=== PATIENT | male | born 1955 ===

== ENCOUNTER 2017-02-06 18:47 | Observation (INO) | payer MEDICARE, OTHER ==
[2017-02-06] MEDS ORDERED: Sodium Chloride 0.9% 1,000 ML IV ONE (22:22)
[2017-02-06 22:58] LABS: BASO # 0.1 K/uL (0.0-0.2); BASO % 0.7 % (0.0-2.0); HEMOGLOBIN 14.7 g/dL (12.0-18.0); LYMPH # 0.9 K/uL (1.0-4.3); LYMPH % 5.9 % (20.0-40.0); MEAN CELL VOLUME 84.5 fL (80.0-94.0); MEAN CORPUSCULAR HEMOGLOBIN 29.4 pg (27.0-31.0); MEAN CORPUSCULAR HGB CONC 34.9 g/dL (33.0-37.0); MEAN PLATELET VOLUME 8.3 fL (7.2-11.7); MONO # 0.4 K/uL (0.0-0.8); MONO % 2.9 % (0.0-10.0); NEUT # 13.6 K/uL (1.8-7.0); NEUT % 90.5 % (50.0-75.0); PLATELET COUNT 276 K/uL (130-400); RBC 4.98 Mil/uL (4.40-5.90); RED CELL DISTRIBUTION WIDTH 12.7 % (11.5-14.5); WHITE BLOOD COUNT 15.1 K/uL (4.8-10.8)
[2017-02-06 23:06] LABS: ALBUMIN 3.9 g/dL (3.5-5.0)
[2017-02-06 23:09] LABS: ALB/GLOB RATIO 1.2 (1.0-2.1); AST/SGOT 18 U/L (17-59); BLOOD UREA NITROGEN 23 mg/dL (9-20); GFR AFRICAN-AMERICAN > 60; GFR NON-AFRICAN AMERICAN > 60
[2017-02-06 23:10] LABS: ALT/SGPT 32 U/L (21-72); CALCIUM 9.1 mg/dl (8.6-10.4); LIPASE 445 U/L (23-300)
[2017-02-06 23:48] LABS: SQUAMOUS EPITHIAL 2 /hpf (0-5); URINE BACTERIA RARE (<OCC); URINE BILIRUBIN NEGATIVE (NEGATIVE); URINE BLOOD 1+ (NEGATIVE); URINE CLARITY Hazy (Clear); URINE COLOR Yellow (YELLOW); URINE GLUCOSE (UA) 3+ mg/dL (Normal); URINE NITRATE NEGATIVE (NEGATIVE); URINE PROTEIN 3+ mg/dL (NEGATIVE); URINE UROBILINOGEN NORMAL mg/dL (0.2-1.0)
[2017-02-06 23:49] LABS: URINE LEUKOCYTE ESTERASE 1+ Leu/uL (Negative)
--- NOTE | 2017-02-07 00:04 | C.PDOC ---
History Of Present Illness 61 y/o male, with PMHx of diabetes and hypertension, presents to ED with complaints of nausea, vomiting, and dizziness since this morning. Patient also reports mild diffuse abdominal pain. Denies fever or diarrhea. Patient states he has not taken any medications for symptoms. Denies urinary symptoms, chest pain, or blood in vomitus. Time Seen by Provider: 02/06/17 22:14 Chief Complaint (Nursing): Dizziness/Lightheaded History Per: Patient History/Exam Limitations: no limitations Onset/Duration Of Symptoms: Hrs Current Symptoms Are (Timing): Still Present Seizure Or Post-ictal Symptoms: None Fall Associated With With Symptoms: No Recent travel outside of the [place]: No Past Medical History Reviewed: Historical Data, Nursing Documentation, Vital Signs Vital Signs: Last Vital Signs Temp 97.8 F 02/07/17 00:54 Pulse 73 02/07/17 00:54 Resp 16 02/07/17 00:54 BP 138/72 02/07/17 00:54 Pulse Ox 97 02/07/17 00:54 - Medical History PMH: Anxiety, Diabetes, Graves' Disease, HTN Surgical History: No Surg Hx Family History: States: Unknown Family Hx - Social History Hx Alcohol Use: No Hx Substance Use: No Review Of Systems Except As Marked, All Systems Reviewed And Found Negative. Constitutional: Negative for: Fever, Chills Cardiovascular: Negative for: Chest Pain, Palpitations Respiratory: Negative for: Shortness of Breath Gastrointestinal: Positive for: Vomiting, Abdominal Pain. Negative for: Diarrhea, Hematemesis Genitourinary: Negative for: Dysuria Skin: Negative for: Rash Neurological: Negative for: Dizziness Physical Exam - Physical Exam Appears: Non-toxic, No Acute Distress Skin: Warm, Dry Head: Atraumatic, Normacephalic Chest: Symmetrical Cardiovascular: Rhythm Regular Respiratory: Normal Breath Sounds, No Rales, No Rhonchi, No Wheezing Gastrointestinal/Abdominal: Soft, No Tenderness, No Guarding, No Rebound Back: Normal Inspection Extremity: Normal ROM Neurological/Psych: Oriented x3, Normal Speech, Normal Cognition ED Course And Treatment - Laboratory Results Result Diagrams: 02/06/17 22:56 02/06/17 22:56 ECG: Interpreted By Me ECG Rhythm: Sinus Rhythm ECG Interpretation: Normal Rate From EC (bpm) O2 Sat by Pulse Oximetry: 96 (RA) Pulse Ox Interpretation: Normal Progress Note: Treated with Reglan, Pepcid, and IVFs. Labs and EKG ordered, reviewed. Medical Decision Making Medical Decision Making: Pt continued stable in the ED No further vomiting, abd continues soft with mild tenderness Labs noted mildly low na, lipase and glucose, with elevated wbc's Presently pending CT Disposition - Disposition Disposition Time: 00:45 Condition: FAIR - Clinical Impression Clinical Impression: Abdominal pain, Vomiting - Scribe Statement The provider has reviewed the documentation as recorded by the Laury Willingham Provider Scribe Attestation: All medical record entries made by the Laury were at my direction and personally dictated by me. I have reviewed the chart and agree that the record accurately reflects my personal performance of the history, physical exam, medical decision making, and the department course for this patient. I have also personally directed, reviewed, and agree with the discharge instructions and disposition. Physician Patient Turnover Patient Signed Over To: Gaurang Meyers Handoff Comments: pending CT and responce to meds
[2017-02-07 00:14] LABS: LYMPHOCYTE 8 % (20-40); MONOCYTE 5 % (0-10); NEUTROPHIL 87 % (50-75); PLATELET ESTIMATE NORMAL (NORMAL); TOTAL CELLS COUNTED 100
[2017-02-07] MEDS ORDERED: Iohexol 240 (50 ml) PO ONE (01:03)
[2017-02-07] MEDS ORDERED: Iohexol 240 (50 ml) ONE (01:21)
[2017-02-07] MEDS ORDERED: Iodixanol 320 MG/ML 100 ML BOTTLE IV ONE (02:16)
--- NOTE | 2017-02-07 03:03 | CT ---
EXAM: CT Abdomen and Pelvis With Intravenous Contrast CLINICAL HISTORY: 61 years old, male; Pain and signs and symptoms; Vomiting; Abdominal pain; Generalized; Additional info: Abd pain vomiting TECHNIQUE: Axial computed tomography images of the abdomen and pelvis with intravenous contrast. This CT exam was performed using one or more of the following dose reduction techniques: automated exposure control, adjustment of the mA and/or kV according to patient size, and/or use of iterative reconstruction technique. Coronal and sagittal reformatted images were created and reviewed. CONTRAST: 100 mL of [id number] administered intravenously. COMPARISON: Mild atherosclerotic disease. FINDINGS: Limitations: Motion artifact - mild. Lower thorax: Minimal atelectasis/scarring. RIGHT lower lobe calcified granuloma. 0.3 cm RIGHT lower lobe nodule. ABDOMEN: Liver: Punctate hepatic calcification. Too small to characterize lesion. Gallbladder and bile ducts: No calcified stones. No ductal dilation. Pancreas: No ductal dilation. No mass. Spleen: No splenomegaly. Adrenals: No mass. Kidneys and ureters: 1.6 x 1.5 x 1.3 cm lesion within LEFT kidney, indeterminate by CT criteria. Few too small to characterize lesions within kidneys. No hydronephrosis. Stomach and bowel: No definite mural thickening. No obstruction. Appendix: Enlarged appendix, measuring up to 0.9 cm in diameter. No definite surrounding inflammatory stranding. Possible tiny periappendiceal lymph node. PELVIS: Bladder: Unremarkable. Reproductive: Mildly enlarged prostate. ABDOMEN and PELVIS: Intraperitoneal space: No significant fluid collection. No free air. Bones/joints: Degenerative changes of spine. No acute fracture. Soft tissues: Minimal gynecomastia. Vasculature: Unremarkable. No abdominal aortic aneurysm. Lymph nodes: See above. IMPRESSION: 1. Enlarged appendix without definite inflammation. Early appendicitis not excluded. Clinical correlation and follow up are recommended. 2. Kidney lesion, indeterminate. Recommend nonemergent ultrasound or MRI. 3. Incidental/non-acute findings are described above. THIS REPORT CONTAINS FINDINGS THAT MAY BE CRITICAL TO PATIENT CARE. The findings were verbally communicated via telephone conference with Dr. Meyers at 3:02 AM EDT on 02/07/2017. The findings were acknowledged and understood.
[2017-02-07] MEDS ORDERED: Piperacillin/Tazobact 3.375 gm 100 ML IVPB STA (03:14)
[2017-02-07] MEDS ORDERED: Piperacillin/Tazobact 3.375 gm 100 ML IVPB ONE (03:37)
[2017-02-07] MEDS ORDERED: Cefepime 1 GM in Sodium Chloride 0.9% 50 ML IVPB SCH (09:15)
[2017-02-07] MEDS ORDERED: Piperacill/Tazo 3.375gm in Dex 50 ML IVPB SCH (09:45)
[2017-02-07] MEDS ORDERED: Enoxaparin 40 mg Syringe SC SCH (10:00)
--- NOTE | 2017-02-07 10:13 | CP.PCM.CON ---
History of Present Illness - History of Present Illness History of Present Illness: General surgery consult for Dr. Alfaro: Patient is a 61 year old male with past medical history of diabetes, hypertension, and elevated cholesterol who presents to the ED with complaint of vomiting. Patient states the vomiting began yesterday and that he vomited 7-8 times. Patient reports non-bloody emesis. Patient states last episode of vomiting was upon his arrival in the ED yesterday evening. Patient denies episodes similar to this in the past. Patient denies recent illness. Patient denies eating or drinking since yesterday evening. Patient denies fever, chills , nausea. Patient denies abdominal pain. Patient admits to mild sensation of dizziness upon ambulation. Patient reports normal BM this morning. Patient was given zofran and reglan in ER with relief of symptoms. Patient had elevated lipase of 445 on initial labs. Patient is being admitted for possible pancreatitis, enlarged appendix, nausea and vomiting. Surgery consulted for enlarged appendix seen on CT scan. PMD: Dr. Juliocesar Pereira PMHx: DM, HTN, HLD PSHx: bilateral cataract removal Family Hx: Mother/ Father with DM, HTN; sister with uterine cancer Social Hx: former smoker/ alcohol abuse- quit 20 years ago Review of Systems - Constitutional Constitutional: absent: Chills, Fever, Weakness - EENT Eyes: absent: Change in Vision - Cardiovascular Cardiovascular: absent: Chest Pain, Dyspnea - Respiratory Respiratory: absent: Dyspnea - Gastrointestinal Gastrointestinal: Nausea, Vomiting. absent: Abdominal Pain, Diarrhea, Hematemesis - Genitourinary Genitourinary: absent: Difficulty Urinating - Musculoskeletal Musculoskeletal: absent: Back Pain - Neurological Neurological: Dizziness Past Patient History - Past Social History Smoking Status: Never Smoked - CARDIAC Hx Hypertension: Yes - PSYCHIATRIC Hx Anxiety: Yes Hx Substance Use: No - SURGICAL HISTORY Hx Cataract Extraction: Yes (both) - ANESTHESIA Hx Anesthesia: Yes Hx Anesthesia Reactions: Yes Meds Allergies/Adverse Reactions: Allergies Allergy/AdvReac Type Severity Reaction Status Date / Time No Known Allergies Allergy Unverified 02/06/17 19:41 - Medications Medications: Current Medications Amlodipine Besylate (Norvasc) 5 mg PO DAILY [facility] Glipizide (Glucotrol) 5 mg PO DAILY [facility] Home Med (Valsartan-Hctz 160-12.5 Mg Tab) 160 mg PO DAILY [facility] Cefepime HCl 1 gm/ Sodium (Chloride) 50 mls @ 100 mls/hr IVPB Q12H [facility] Piperacillin Sod/Tazobactam Sod (Zosyn 3.375 Gm Iv Premix) 50 mls @ 100 mls/hr IVPB Q8 [facility] Insulin Human Regular (Novolin R) 0 unit SC ACHS [facility] PRN Reason: Protocol Metformin HCl (Glucophage) 1,000 mg PO DAILY [facility] Pantoprazole Sodium (Protonix Ec Tab) 40 mg PO DAILY [facility] Sitagliptin Phosphate (Januvia) 100 mg PO DAILY [facility] Physical Exam - Constitutional Appears: Non-toxic, No Acute Distress - Head Exam Head Exam: ATRAUMATIC, NORMOCEPHALIC - Eye Exam Eye Exam: EOMI - ENT Exam ENT Exam: Mucous Membranes Dry - Respiratory Exam Respiratory Exam: Clear to Auscultation Bilateral, NORMAL BREATHING PATTERN - Cardiovascular Exam Cardiovascular Exam: +S1, +S2 - GI/Abdominal Exam GI & Abdominal Exam: Normal Bowel Sounds, Soft. absent: Distended, Firm, Guarding, Rebound, Rigid, Tenderness - Extremities Exam Extremities exam: Negative for: calf tenderness, pedal edema - Neurological Exam Neurological exam: Alert, Oriented x3 - Psychiatric Exam Psychiatric exam: Normal Affect - Skin Skin Exam: Dry, Warm Results - Vital Signs Recent Vital Signs: Last Vital Signs Temp 97.5 F L 02/07/17 08:44 Pulse 67 02/07/17 08:44 Resp 18 02/07/17 08:44 BP 142/74 02/07/17 08:44 Pulse Ox 96 02/07/17 08:44 - Labs Result Diagrams: 02/06/17 22:56 02/06/17 22:56 Assessment & Plan - Assessment and Plan (Free Text) Assessment: 61 year old male with PMHx of diabetes, HTN, elevated cholesterol with multiple episodes of non-bloody emesis, possible early appendicitis on CT - leukocytosis of 15.1 on admission, will follow up labs today - continue IV antibiotics per primary team - CT abd/ pelvis with PO/ IV contrast: no calcified stones or ductal dilation in gallbladder. enlarged appendix measuring up to 0.9cm in diameter. no definite surrounding inflammatory stranding. possible tiny periappendiceal lymph node. no significant fluid collection. no free air. early appendicitis not excluded. (see full report) - lipase 445 - abdomen non-tender, non-distended - IV fluids - will keep patient NPO for now, will continue to monitor - plan discussed with Dr. Alfaro
[2017-02-07] MEDS: Pantoprazole 40 mg EC Tab PO SCH (12:01)
[2017-02-07] MEDS: Cefepime 1 GM in Sodium Chloride 0.9% 100 ML IVPB SCH (13:14)
[2017-02-07] MEDS: (Novolin R) Insulin Human Regular 100 units/ml vial SC SCH ×3 (13:15→22:07)
[2017-02-07] MEDS ORDERED: Dextrose 5%/0.9% NS 1,000 ML IV ONE (13:23)
[2017-02-07] MEDS: Dextrose 5%/0.9% NS 1,000 ML IV SCH ×3 (13:26→23:35)
--- NOTE | 2017-02-07 13:53 | CP.PCM.HP ---
History of Present Illness - History of Present Illness History of Present Illness: 61 years old male patient with past medical history of hypertension and diabetes presented to the emergency room with complaint of dizziness since today morning, also nausea, vomiting, diffuse abdominal pain. No complaint of fever, chest pain, diarrhea. No any urinary symptoms, no hemoptysis Present on Admission - Present on Admission Any Indicators Present on Admission: No Past Patient History - Past Social History Smoking Status: Never Smoked - CARDIAC Hx Hypertension: Yes - PSYCHIATRIC Hx Anxiety: Yes Hx Substance Use: No - SURGICAL HISTORY Hx Cataract Extraction: Yes (both) - ANESTHESIA Hx Anesthesia: Yes Hx Anesthesia Reactions: Yes Meds Allergies/Adverse Reactions: Allergies Allergy/AdvReac Type Severity Reaction Status Date / Time No Known Allergies Allergy Unverified 02/06/17 19:41 Physical Exam - Constitutional Appears: Well - Head Exam Head Exam: ATRAUMATIC, NORMAL INSPECTION, NORMOCEPHALIC - Eye Exam Eye Exam: EOMI, Normal appearance, PERRL Pupil Exam: NORMAL ACCOMODATION, PERRL - ENT Exam ENT Exam: Mucous Membranes Moist, Normal Exam - Neck Exam Neck exam: Positive for: Normal Inspection - Respiratory Exam Respiratory Exam: Decreased Breath Sounds - Cardiovascular Exam Cardiovascular Exam: REGULAR RHYTHM, +S1, +S2 - GI/Abdominal Exam GI & Abdominal Exam: Soft - Rectal Exam Rectal Exam: Deferred Results - Vital Signs Recent Vital Signs: Last Vital Signs Temp 98 F 02/07/17 13:13 Pulse 68 02/07/17 13:13 Resp 20 02/07/17 13:13 BP 143/77 02/07/17 13:13 Pulse Ox 98 02/07/17 13:13 - Labs Result Diagrams: 02/09/17 08:04 02/09/17 08:04 Labs: Laboratory Results - last 24 hr 02/07/17 13:10 POC Glucose (mg/dL) 207 H Assessment & Plan (1) Abdominal pain Status: Acute (2) Pancreatitis Status: Acute (3) Vomiting Status: Acute - Assessment and Plan (Free Text) Plan: Labs reviewed Continue IV antibiotics IV fluids N.p.o. Dr. Alfaro Accu-Chek Protonix
[2017-02-07 16:47] LABS: BASO # 0.1 K/uL (0.0-0.2); BASO % 0.5 % (0.0-2.0); EOS # 0.1 K/uL (0.0-0.7); LYMPH # 2.1 K/uL (1.0-4.3); LYMPH % 17.5 % (20.0-40.0); MEAN CELL VOLUME 85.1 fL (80.0-94.0); MEAN CORPUSCULAR HEMOGLOBIN 29.3 pg (27.0-31.0); MEAN CORPUSCULAR HGB CONC 34.4 g/dL (33.0-37.0); MEAN PLATELET VOLUME 8.4 fL (7.2-11.7); MONO # 1.1 K/uL (0.0-0.8); MONO % 9.3 % (0.0-10.0); NEUT # 8.6 K/uL (1.8-7.0); NEUT % 71.7 % (50.0-75.0); RBC 4.76 Mil/uL (4.40-5.90); RED CELL DISTRIBUTION WIDTH 13.3 % (11.5-14.5)
[2017-02-07 16:56] LABS: ALBUMIN 3.5 g/dL (3.5-5.0)
[2017-02-07 16:59] LABS: AST/SGOT 20 U/L (17-59); GFR AFRICAN-AMERICAN > 60; GFR NON-AFRICAN AMERICAN > 60
[2017-02-07 17:00] LABS: ALB/GLOB RATIO 1.2 (1.0-2.1); ALT/SGPT 21 U/L (21-72); BLOOD UREA NITROGEN 19 mg/dL (9-20); CALCIUM 8.4 mg/dl (8.6-10.4)
[2017-02-07 22:04] LABS: SQUAMOUS EPITHIAL 2 /hpf (0-5); URINE BACTERIA RARE (<OCC); URINE BILIRUBIN NEGATIVE (NEGATIVE); URINE BLOOD NEGATIVE (NEGATIVE); URINE CLARITY Clear (Clear); URINE COLOR Yellow (YELLOW); URINE GLUCOSE (UA) 3+ mg/dL (Normal); URINE LEUKOCYTE ESTERASE NEG Leu/uL (Negative); URINE NITRATE NEGATIVE (NEGATIVE); URINE PROTEIN 2+ mg/dL (NEGATIVE); URINE UROBILINOGEN NORMAL mg/dL (0.2-1.0)
[2017-02-08] MEDS: Cefepime 1 GM in Sodium Chloride 0.9% 100 ML IVPB SCH ×2 (01:00→13:00)
[2017-02-08 01:24] VITALS: RESP 20
[2017-02-08] MEDS: Dextrose 5%/0.9% NS 1,000 ML IV SCH (04:00)
[2017-02-08] MEDS: (Novolin R) Insulin Human Regular 100 units/ml vial SC SCH ×4 (08:18→22:13)
--- NOTE | 2017-02-08 08:54 | CP.PCM.PN ---
Subjective - Date & Time of Evaluation Date of Evaluation: 02/08/17 Time of Evaluation: 08:48 - Subjective Subjective: PGY1 Progress Note fore Dr. Alfaro: Patient seen and examined. Patient denies abdominal pain, nausea, vomiting. Patient states he is hungry and would like to try to eat today. Objective - Vital Signs/Intake and Output Vital Signs (last 24 hours): Temp Pulse Resp BP Pulse Ox 98.3 F 69 20 155/80 H 96 02/08/17 07:49 02/08/17 07:49 02/08/17 07:49 02/08/17 07:49 02/08/17 07:49 Intake and Output: 02/08/17 02/08/17 06:59 18:59 Intake Total 2350 Balance 2350 - Medications Medications: Current Medications Amlodipine Besylate (Norvasc) 5 mg PO DAILY [facility] Last Admin: 02/07/17 12:01 Dose: 5 mg Glipizide (Glucotrol) 5 mg PO DAILY [facility] Last Admin: 02/07/17 12:01 Dose: 5 mg Hydrochlorothiazide (Microzide) 12.5 mg PO DAILY [facility] Dextrose/Sodium Chloride (Dextrose 5%/0.9% Ns 1000 Ml) 1,000 mls @ 150 mls/hr IV .Q6H40M [facility] Last Admin: 02/08/17 04:00 Dose: 150 mls/hr Cefepime HCl 1 gm/ Sodium (Chloride) 100 mls @ 200 mls/hr IVPB Q12H [facility] Last Admin: 02/08/17 01:00 Dose: 200 mls/hr Insulin Human Regular (Novolin R) 0 unit SC ACHS [facility] PRN Reason: Protocol Last Admin: 02/08/17 08:18 Dose: 2 unit Losartan Potassium (Cozaar) 100 mg PO DAILY [facility] Metformin HCl (Glucophage) 1,000 mg PO DAILY [facility] Last Admin: 02/07/17 12:00 Dose: 1,000 mg Pantoprazole Sodium (Protonix Ec Tab) 40 mg PO DAILY [facility] Last Admin: 02/07/17 12:01 Dose: 40 mg Pneumococcal Polyvalent Vaccine (Pneumovax 23 Vaccine) 0.5 ml IM .ONCE ONE Stop: 02/10/17 10:01 Sitagliptin Phosphate (Januvia) 100 mg PO DAILY [facility] Last Admin: 02/07/17 12:01 Dose: 100 mg - Labs Labs: 02/07/17 16:40 02/07/17 16:40 - Constitutional Appears: Non-toxic, No Acute Distress - Head Exam Head Exam: ATRAUMATIC, NORMOCEPHALIC - Eye Exam Eye Exam: EOMI - ENT Exam ENT Exam: Mucous Membranes Moist - GI/Abdominal Exam GI & Abdominal Exam: Soft, Normal Bowel Sounds. absent: Distended, Firm, Guarding, Tenderness - Neurological Exam Neurological Exam: Alert, Awake - Psychiatric Exam Psychiatric exam: Normal Affect - Skin Skin Exam: Warm Assessment and Plan - Assessment and Plan (Free Text) Assessment: 61 year old male with PMHx of diabetes, HTN, elevated cholesterol admitted for multiple episodes of non-bloody emesis and enlarged appendix seen on CT - leukocytosis on admission, AM labs today pending - continue IV antibiotics per primary team - CT abd/ pelvis with PO/ IV contrast: no calcified stones or ductal dilation in gallbladder. enlarged appendix measuring up to 0.9cm in diameter. no definite surrounding inflammatory stranding. possible tiny periappendiceal lymph node. no significant fluid collection. no free air. early appendicitis not excluded. (see full report) - abdomen non-tender, non-distended - continue IV fluids - will advance diet today - further recs per Dr. Alfaro
[2017-02-08] MEDS: Pantoprazole 40 mg EC Tab PO SCH (09:53)
[2017-02-08] MEDS: Sodium Chloride 0.9% 1,000 ML IV SCH ×2 (10:33→22:12)
[2017-02-08 12:05] LABS: BASO % 0.2 % (0.0-2.0); EOS % 0.5 % (0.0-4.0); HEMOGLOBIN 13.4 g/dL (12.0-18.0); LYMPH # 1.2 K/uL (1.0-4.3); LYMPH % 15.4 % (20.0-40.0); MEAN CORPUSCULAR HGB CONC 33.7 g/dL (33.0-37.0); MEAN PLATELET VOLUME 8.3 fL (7.2-11.7); MONO # 0.7 K/uL (0.0-0.8); MONO % 9.1 % (0.0-10.0); NEUT # 6.1 K/uL (1.8-7.0); NEUT % 74.8 % (50.0-75.0); RBC 4.63 Mil/uL (4.40-5.90); RED CELL DISTRIBUTION WIDTH 12.9 % (11.5-14.5); WHITE BLOOD COUNT 8.1 K/uL (4.8-10.8)
[2017-02-08 12:19] LABS: AST/SGOT 21 U/L (17-59); GFR AFRICAN-AMERICAN > 60; GFR NON-AFRICAN AMERICAN > 60
[2017-02-08 12:20] LABS: ALT/SGPT 28 U/L (21-72); BLOOD UREA NITROGEN 14 mg/dL (9-20); CALCIUM 8.4 mg/dl (8.6-10.4)
--- NOTE | 2017-02-08 15:47 | CP.PCM.PN ---
Subjective - Date & Time of Evaluation Date of Evaluation: 02/08/17 Time of Evaluation: 10:40 - Subjective Subjective: clinically same Objective - Vital Signs/Intake and Output Vital Signs (last 24 hours): Temp Pulse Resp BP Pulse Ox 98.3 F 69 20 155/80 H 96 02/08/17 07:49 02/08/17 07:49 02/08/17 07:49 02/08/17 07:49 02/08/17 07:49 Intake and Output: 02/08/17 02/08/17 06:59 18:59 Intake Total 2350 1480 Balance 2350 1480 - Medications Medications: Current Medications Amlodipine Besylate (Norvasc) 5 mg PO DAILY [facility] Last Admin: 02/08/17 09:53 Dose: 5 mg Glipizide (Glucotrol) 5 mg PO DAILY [facility] Last Admin: 02/07/17 12:01 Dose: 5 mg Hydrochlorothiazide (Microzide) 12.5 mg PO DAILY [facility] Last Admin: 02/08/17 09:53 Dose: 12.5 mg Cefepime HCl 1 gm/ Sodium (Chloride) 100 mls @ 200 mls/hr IVPB Q12H [facility] Last Admin: 02/08/17 13:00 Dose: 200 mls/hr Sodium Chloride (Sodium Chloride 0.9%) 1,000 mls @ 100 mls/hr IV .Q10H [facility] Last Admin: 02/08/17 10:33 Dose: 100 mls/hr Insulin Human Regular (Novolin R) 0 unit SC ACHS [facility] PRN Reason: Protocol Last Admin: 02/08/17 13:01 Dose: 2 unit Losartan Potassium (Cozaar) 100 mg PO DAILY [facility] Last Admin: 02/08/17 09:53 Dose: 100 mg Metformin HCl (Glucophage) 1,000 mg PO DAILY [facility] Last Admin: 02/07/17 12:00 Dose: 1,000 mg Pantoprazole Sodium (Protonix Ec Tab) 40 mg PO DAILY [facility] Last Admin: 02/08/17 09:53 Dose: 40 mg Pneumococcal Polyvalent Vaccine (Pneumovax 23 Vaccine) 0.5 ml IM .ONCE ONE Stop: 02/10/17 10:01 Sitagliptin Phosphate (Januvia) 100 mg PO DAILY [facility] Last Admin: 02/07/17 12:01 Dose: 100 mg - Labs Labs: 02/08/17 11:54 02/08/17 11:54 - Constitutional Appears: Well - Head Exam Head Exam: ATRAUMATIC, NORMAL INSPECTION, NORMOCEPHALIC - Eye Exam Eye Exam: EOMI, Normal appearance, PERRL Pupil Exam: NORMAL ACCOMODATION, PERRL - ENT Exam ENT Exam: Mucous Membranes Moist, Normal Exam - Neck Exam Neck Exam: Full ROM, Normal Inspection. absent: Lymphadenopathy - Respiratory Exam Respiratory Exam: Decreased Breath Sounds - Cardiovascular Exam Cardiovascular Exam: REGULAR RHYTHM, +S1, +S2 - GI/Abdominal Exam GI & Abdominal Exam: Soft, Diminished Bowel Sounds - Rectal Exam Rectal Exam: Deferred Assessment and Plan (1) Abdominal pain Status: Acute (2) Pancreatitis Status: Acute (3) Vomiting Status: Acute - Assessment and Plan (Free Text) Plan: Consult GI Consult general surgery Blood report positive for lipase with 445 and leukocytosis IV antibiotic Protonix IV fluids CT positive for appendicitis
[2017-02-08 16:59] VITALS: O2SAT 97
[2017-02-09] MEDS: Cefepime 1 GM in Sodium Chloride 0.9% 100 ML IVPB SCH ×2 (01:30→12:06)
--- NOTE | 2017-02-09 07:46 | CP.PCM.PN ---
Subjective - Date & Time of Evaluation Date of Evaluation: 02/09/17 Time of Evaluation: 07:41 - Subjective Subjective: PGY1 Progress note for Dr. Alfaro: Patient seen and examined. Patient denies abdominal pain, nausea, vomiting, fevers, chills. Patient states he is eating well and feels well. Objective - Vital Signs/Intake and Output Vital Signs (last 24 hours): Temp Pulse Resp BP Pulse Ox 98.5 F 75 20 152/73 H 97 02/09/17 06:00 02/09/17 00:00 02/09/17 00:00 02/09/17 00:00 02/09/17 00:00 Intake and Output: 02/09/17 02/09/17 06:59 18:59 Intake Total 2250 Balance 2250 - Medications Medications: Current Medications Amlodipine Besylate (Norvasc) 5 mg PO DAILY [facility] Last Admin: 02/08/17 09:53 Dose: 5 mg Glipizide (Glucotrol) 5 mg PO DAILY [facility] Last Admin: 02/07/17 12:01 Dose: 5 mg Hydrochlorothiazide (Microzide) 12.5 mg PO DAILY [facility] Last Admin: 02/08/17 09:53 Dose: 12.5 mg Cefepime HCl 1 gm/ Sodium (Chloride) 100 mls @ 200 mls/hr IVPB Q12H [facility] Last Admin: 02/09/17 01:30 Dose: 200 mls/hr Sodium Chloride (Sodium Chloride 0.9%) 1,000 mls @ 100 mls/hr IV .Q10H [facility] Last Admin: 02/08/17 22:12 Dose: 100 mls/hr Insulin Human Regular (Novolin R) 0 unit SC ACHS [facility] PRN Reason: Protocol Last Admin: 02/08/17 22:13 Dose: Not Given Losartan Potassium (Cozaar) 100 mg PO DAILY [facility] Last Admin: 02/08/17 09:53 Dose: 100 mg Metformin HCl (Glucophage) 1,000 mg PO DAILY [facility] Last Admin: 02/07/17 12:00 Dose: 1,000 mg Pantoprazole Sodium (Protonix Ec Tab) 40 mg PO DAILY [facility] Last Admin: 02/08/17 09:53 Dose: 40 mg Pneumococcal Polyvalent Vaccine (Pneumovax 23 Vaccine) 0.5 ml IM .ONCE ONE Stop: 02/10/17 10:01 Sitagliptin Phosphate (Januvia) 100 mg PO DAILY [facility] Last Admin: 02/07/17 12:01 Dose: 100 mg - Labs Labs: 02/08/17 11:54 02/08/17 11:54 - Constitutional Appears: Non-toxic, No Acute Distress - Head Exam Head Exam: ATRAUMATIC, NORMOCEPHALIC - Eye Exam Eye Exam: EOMI - ENT Exam ENT Exam: Mucous Membranes Moist - GI/Abdominal Exam GI & Abdominal Exam: Soft. absent: Distended, Tenderness - Neurological Exam Neurological Exam: Alert, Awake - Psychiatric Exam Psychiatric exam: Normal Affect - Skin Skin Exam: Warm Assessment and Plan - Assessment and Plan (Free Text) Assessment: 61 year old male with PMHx of diabetes, HTN, elevated cholesterol admitted for multiple episodes of non-bloody emesis and enlarged appendix seen on CT - CT abd/ pelvis with PO/ IV contrast: no calcified stones or ductal dilation in gallbladder. enlarged appendix measuring up to 0.9cm in diameter. no definite surrounding inflammatory stranding. possible tiny periappendiceal lymph node. no significant fluid collection. no free air. early appendicitis not excluded. (see full report) - leukocytosis downtrending, AM labs today pending - abdomen non-tender, non-distended - patient tolerating full diet - patient can be discharged from surgical standpoint with cipro and flagyl for 7 days - further recs per Dr. Alfaro
[2017-02-09] MEDS: (Novolin R) Insulin Human Regular 100 units/ml vial SC SCH ×3 (08:19→16:30)
[2017-02-09 08:22] LABS: BASO % 0.4 % (0.0-2.0); EOS # 0.2 K/uL (0.0-0.7); EOS % 1.8 % (0.0-4.0); HEMOGLOBIN 13.1 g/dL (12.0-18.0); LYMPH # 1.3 K/uL (1.0-4.3); LYMPH % 14.5 % (20.0-40.0); MEAN CELL VOLUME 85.7 fL (80.0-94.0); MEAN CORPUSCULAR HEMOGLOBIN 29.1 pg (27.0-31.0); MEAN PLATELET VOLUME 8.5 fL (7.2-11.7); MONO # 0.8 K/uL (0.0-0.8); NEUT # 6.7 K/uL (1.8-7.0); NEUT % 74.3 % (50.0-75.0); NRBC % 0.2 % (0.0-2.0); RBC 4.51 Mil/uL (4.40-5.90); RED CELL DISTRIBUTION WIDTH 13.1 % (11.5-14.5)
[2017-02-09 09:04] LABS: ALBUMIN 3.2 g/dL (3.5-5.0)
[2017-02-09 09:06] LABS: AMYLASE 146 U/L (30-110); GFR AFRICAN-AMERICAN > 60; GFR NON-AFRICAN AMERICAN > 60
[2017-02-09 09:07] LABS: ALB/GLOB RATIO 1.2 (1.0-2.1); ALT/SGPT 33 U/L (21-72); AST/SGOT 35 U/L (17-59); BLOOD UREA NITROGEN 14 mg/dL (9-20); CALCIUM 8.3 mg/dl (8.6-10.4); LIPASE 457 U/L (23-300)
[2017-02-09] MEDS: Pantoprazole 40 mg EC Tab PO SCH (11:47)
[2017-02-09] MEDS ORDERED: Sodium Chloride 0.9% 1,000 ML IV SCH (13:15)
[2017-02-09 16:24] VITALS: BP 154/64; PULSE 67; TEMP 97.9
[2017-02-09] MEDS ORDERED: Pneumococcal 23-Valent Vaccine IM ONE (16:45)
--- NOTE | 2017-02-09 16:45 | CP.PCM.PN ---
Subjective - Date & Time of Evaluation Date of Evaluation: 02/09/17 Time of Evaluation: 11:00 - Subjective Subjective: 61 Y/O MALE SEEN AND EXAMINED TODAY BY DR Adiel IVAN, PMHX DM, HTN, ENLARGED APPENDIX 90.9 CM), NO FLUID COLLECTION, NO FREE AIR, ABD SOFT AND NON-TENDER, TOLERATING REGULAR DIET TODAY, DENIES ANY ABD PAIN, N/V/D, PT CLEARED FOR D/C BY DR IVAN AND SURGERY, RX FOR CIPRO AND FLAGYL GIVEN BY SURGERY, PT EDUCATED TO F/U W/ DR IVAN IN THE OFFICE ON TUESDAY FOR REPEAT AMYLASE. LIPASE, RETURN TO ED IF ANY WORSENING S/S,A GREE, VERBALIZE UNDERSTANDING Objective - Vital Signs/Intake and Output Vital Signs (last 24 hours): Temp Pulse Resp BP Pulse Ox 97.9 F 67 20 154/64 H 97 02/09/17 15:35 02/09/17 15:35 02/09/17 15:35 02/09/17 15:35 02/09/17 15:35 Intake and Output: 02/09/17 02/09/17 06:59 18:59 Intake Total 2250 Balance 2250 - Medications Medications: Current Medications Amlodipine Besylate (Norvasc) 5 mg PO DAILY [facility] Last Admin: 02/09/17 11:47 Dose: 5 mg Glipizide (Glucotrol) 5 mg PO DAILY [facility] Last Admin: 02/07/17 12:01 Dose: 5 mg Hydrochlorothiazide (Microzide) 12.5 mg PO DAILY [facility] Last Admin: 02/09/17 11:47 Dose: 12.5 mg Cefepime HCl 1 gm/ Sodium (Chloride) 100 mls @ 200 mls/hr IVPB Q12H [facility] Last Admin: 02/09/17 12:06 Dose: 200 mls/hr Sodium Chloride (Sodium Chloride 0.9%) 1,000 mls @ 175 mls/hr IV .Q5H43M [facility] Last Admin: 02/09/17 15:07 Dose: 175 mls/hr Insulin Human Regular (Novolin R) 0 unit SC ACHS [facility] PRN Reason: Protocol Last Admin: 02/09/17 12:10 Dose: 1 unit Losartan Potassium (Cozaar) 100 mg PO DAILY [facility] Last Admin: 02/09/17 11:48 Dose: 100 mg Metformin HCl (Glucophage) 1,000 mg PO DAILY [facility] Last Admin: 02/07/17 12:00 Dose: 1,000 mg Pantoprazole Sodium (Protonix Ec Tab) 40 mg PO DAILY [facility] Last Admin: 02/09/17 11:47 Dose: 40 mg Pneumococcal Polyvalent Vaccine (Pneumovax 23 Vaccine) 0.5 ml IM .ONCE ONE Stop: 02/10/17 10:01 Sitagliptin Phosphate (Januvia) 100 mg PO DAILY [facility] Last Admin: 02/07/17 12:01 Dose: 100 mg - Labs Labs: 02/09/17 08:04 02/09/17 08:04
--- NOTE | 2017-02-09 17:58 | CP.PCM.PN ---
Subjective - Date & Time of Evaluation Date of Evaluation: 02/09/17 Time of Evaluation: 09:20 - Subjective Subjective: clinically same Objective - Vital Signs/Intake and Output Vital Signs (last 24 hours): Temp Pulse Resp BP Pulse Ox 97.9 F 67 20 154/64 H 97 02/09/17 15:35 02/09/17 15:35 02/09/17 15:35 02/09/17 15:35 02/09/17 15:35 Intake and Output: 02/09/17 02/09/17 06:59 18:59 Intake Total 2250 Balance 2250 - Medications Medications: Current Medications Amlodipine Besylate (Norvasc) 5 mg PO DAILY [facility] Last Admin: 02/09/17 11:47 Dose: 5 mg Glipizide (Glucotrol) 5 mg PO DAILY [facility] Last Admin: 02/07/17 12:01 Dose: 5 mg Hydrochlorothiazide (Microzide) 12.5 mg PO DAILY [facility] Last Admin: 02/09/17 11:47 Dose: 12.5 mg Cefepime HCl 1 gm/ Sodium (Chloride) 100 mls @ 200 mls/hr IVPB Q12H [facility] Last Admin: 02/09/17 12:06 Dose: 200 mls/hr Sodium Chloride (Sodium Chloride 0.9%) 1,000 mls @ 175 mls/hr IV .Q5H43M [facility] Last Admin: 02/09/17 15:07 Dose: 175 mls/hr Insulin Human Regular (Novolin R) 0 unit SC ACHS [facility] PRN Reason: Protocol Last Admin: 02/09/17 16:30 Dose: 2 unit Losartan Potassium (Cozaar) 100 mg PO DAILY [facility] Last Admin: 02/09/17 11:48 Dose: 100 mg Metformin HCl (Glucophage) 1,000 mg PO DAILY [facility] Last Admin: 02/07/17 12:00 Dose: 1,000 mg Pantoprazole Sodium (Protonix Ec Tab) 40 mg PO DAILY [facility] Last Admin: 02/09/17 11:47 Dose: 40 mg Sitagliptin Phosphate (Januvia) 100 mg PO DAILY [facility] Last Admin: 02/07/17 12:01 Dose: 100 mg - Labs Labs: 02/09/17 08:04 02/09/17 08:04 - Constitutional Appears: Well - Head Exam Head Exam: ATRAUMATIC, NORMAL INSPECTION, NORMOCEPHALIC - Eye Exam Eye Exam: EOMI, Normal appearance, PERRL Pupil Exam: NORMAL ACCOMODATION, PERRL - ENT Exam ENT Exam: Mucous Membranes Moist, Normal Exam - Neck Exam Neck Exam: Full ROM, Normal Inspection. absent: Lymphadenopathy - Respiratory Exam Respiratory Exam: Decreased Breath Sounds - Cardiovascular Exam Cardiovascular Exam: +S1, +S2 - GI/Abdominal Exam GI & Abdominal Exam: Soft, Diminished Bowel Sounds - Rectal Exam Rectal Exam: Deferred Assessment and Plan (1) Abdominal pain Status: Acute (2) Pancreatitis Status: Acute (3) Vomiting Status: Acute - Assessment and Plan (Free Text) Plan: Leukocytosis downtrending Patient tolerating full diet Patient can be discharged with Cipro and Flagyl for 7 days Patient follow-up with me at office on Tuesday for repeat amylase lipase Patient was educated to return to ED if any worsening of symptoms
--- NOTE | 2017-03-23 15:41 | CARD ---
APPROVED REPORT EKG Measurement Heart [id number] <Conclusion> Atrial fibrillation with rapid ventricular response Nonspecific ST abnormality Abnormal ECG
--- NOTE | 2017-04-11 12:44 | CARD ---
APPROVED REPORT EKG Measurement Heart [id number] <Conclusion> Normal sinus rhythm Lateral T wave inversion consider ischemia Abnormal ECG
== END 2017-02-09 18:15 | disposition home or self-care (01) ==
LOC: C.ER 18:47 → INTOOBSV 02-07 04:19 → C.9E 02-07 04:19 → C.3T 02-07 13:40
PROVIDERS: ADMIT Internal Medicine Nephrology; ATTEND Internal Medicine Nephrology
DX: K35.80 Unspecified acute appendicitis (principal); I10 Essential (primary) hypertension; E11.9 Type 2 diabetes mellitus without complications; F41.9 Anxiety disorder, unspecified; E05.00 Thyrotoxicosis with diffuse goiter without thyrotoxic crisis or storm; E78.5 Hyperlipidemia, unspecified; Z83.3 Family history of diabetes mellitus; Z82.49 Family history of ischemic heart disease and other diseases of the circulatory system; Z80.49 Family history of malignant neoplasm of other genital organs; Z87.891 Personal history of nicotine dependence; F10.10 Alcohol abuse, uncomplicated
CPT/HCPCS: 36415; 74177; 80053; 81001; 82150; 82948; 83690; 83735; 84100; 84484; 85025; 93005; 96361; 96365; 96366; 96367; 96375; 99285; G0378; J0692; J2405; J2543; J2765; J7040; J7042; Q9966; Q9967